=== PATIENT | female | born 1985 ===

== ENCOUNTER 2022-02-18 16:53 | Emergency (ER) | payer BC, OTHER ==
[2022-02-18] MEDS ORDERED: ONDANSETRON 4 MG/2 ML VIAL ONE (17:59)
[2022-02-18] MEDS ORDERED: BUPIVACAINE 0.5% PF 10 ML VIAL ONE (17:59)
[2022-02-18] MEDS ORDERED: MORPHINE 4 MG/ML SYR ONE (17:59)
[2022-02-18] MEDS ORDERED: LIDOCAINE 1% 20 ML MDV ONE (17:59)
[2022-02-18] MEDS ORDERED: HYDROMORPHONE HCL 0.5 MG/0.5 ML INJ ONE (18:58)
--- NOTE | 2022-02-18 19:13 | ER ---
Nurse's Notes [facility] Name: Dana Massey Age: 36 yrs Sex: Female : 1985 Arrival Date: 02/18/2022 Time: 17:01 Bed 12 Private MD: Diagnosis: Cutaneous abscess of the buttock;Cutaneous abscess of the lower abdomen Presentation: 02/18 17:33 Chief complaint: Patient states: abscess to buttock. Coronavirus screen: Client denies ss travel out of the [place] in the last 14 days. Ebola Screen: Patient denies exposure to infectious person. Patient denies travel to an Ebola-affected area in the 21 days before illness onset. Initial Sepsis Screen: Does the patient meet any 2 criteria? No. Patient's initial sepsis screen is negative. Does the patient have a suspected source of infection? No. Patient's initial sepsis screen is negative. Risk Assessment: Do you want to hurt yourself or someone else? Patient reports no desire to harm self or others. Onset of symptoms is unknown. 17:33 Method Of Arrival: Ambulatory ss 17:33 Acuity: MUSTAPHA 4 ss Historical: - Allergies: 17:34 No Known Allergies; ss - Immunization history:: Client reports receiving the 2nd dose of the Covid vaccine. - Social history:: Smoking status: Patient denies any tobacco usage or history of. Screenin:09 Abuse screen: Denies threats or abuse. Denies injuries from another. Nutritional ss screening: No deficits noted. Tuberculosis screening: Never had TB. Fall Risk None identified. Assessment: 17:30 General: Appears uncomfortable, Behavior is anxious, crying, Reports fever for. Pain: ss Complains of pain in buttocks Pain currently is 9 out of 10 on a pain scale. Quality of pain is described as tender, Is continuous. Neuro: Level of Consciousness is awake, alert, obeys commands. Respiratory: Airway is patent Respiratory effort is even, unlabored, Respiratory pattern is regular, symmetrical. Derm: Skin is pink, warm \T\ dry. Abscess located on buttocks is half dollar sized, is red, is raised. 18:55 Reassessment: Patient is alert, oriented x 3, equal unlabored respirations, skin aa5 warm/dry/pink. Vital Signs: 17:33 Pulse 86; Resp 16; Temp 99.1(TE); Pulse Ox 99% on R/A; Weight 68.49 kg; Height 5 ft. 5 ss in. (165.10 cm); Pain 9/10; 18:58 BP 127 / 77; Pulse 68; Resp 18 S; Pulse Ox 97% on R/A; aa5 17:33 Body Mass Index 25.13 (68.49 kg, 165.10 cm) ED Course: 17:01 Patient arrived in ED. ds1 17:03 [facility]iga [facility] 17:03 Jose Alejandro Jones MD is Attending Physician. [facility] 17:34 Triage completed. ss 17:37 Zahra Ruiz, RN is Primary Nurse. ss 17:37 Arm band placed on right wrist. ss 18:09 Patient has correct armband on for positive identification. Bed in low position. Call ss light in reach. 18:09 Inserted saline lock: 22 gauge in right antecubital area, using aseptic technique. ss Blood collected. 19:00 No provider procedures requiring assistance completed. IV discontinued, intact, ss bleeding controlled, No redness/swelling at site. Pressure dressing applied. 19:12 Theron Gonsales MD is Referral Physician. [facility] Administered Medications: 18:06 Drug: Zofran (Ondansetron) 4 mg Route: IVP; Site: right antecubital; 18:29 Follow up: Response: No adverse reaction 18:07 Drug: morphine 4 mg Route: IVP; Site: right antecubital; ss 18:29 Follow up: Response: No adverse reaction; Pain is unchanged, physician notified 18:14 Drug: Lidocaine (1 %) 20 ml {Note: administered by PA. Nba} Volume: 20 ml; Route: ss Infiltration; 18:14 Drug: Marcaine (bupivacaine) (0.5 %) 10 ml {Note: administered by PA. Nba} Volume: 10 ss ml; Route: Infiltration; 18:55 Drug: Dilaudid (HYDROmorphone) 0.5 mg Route: IVP; Site: right antecubital; aa5 19:40 Follow up: Response: No adverse reaction; Pain is decreased Outcome: 19:00 Discharged to home ambulatory. 19:00 Condition: good 19:00 Discharge instructions given to patient, Instructed on discharge instructions, follow up and referral plans. medication usage, Demonstrated understanding of instructions, follow-up care, medications, Prescriptions given X 2. 19:12 Discharge ordered by . evelin 19:40 Patient left the ED. ss Signatures: Nba Zuniga PA PA jmm Sanford, Demi ds1 Charley Franco, RN RN aa5 Zahra Ruiz RN RN ss
--- NOTE | 2022-02-18 19:13 | EDPHYS ---
Physician Documentation [facility] Name: Dana Massey Age: 36 yrs Sex: Female : 1985 Arrival Date: 02/18/2022 Time: 17:01 Bed 12 Private MD: ED Physician Jose Alejandro Jones HPI: 02/18 19:08 This 36 yrs old Unknown Female presents to ER via Ambulatory with complaints of Abscess.jmm 19:08 The patient presents with an abscess of the buttocks and abdomen. Onset: The jmm symptoms/episode began/occurred gradually. Possible cause(s): unknown. Associated signs and symptoms: Pertinent positives: fever. Modifying factors: the symptoms are alleviated by nothing, the symptoms are aggravated by nothing. The patient has not experienced similar symptoms in the past. Is a 36-year-old female with no Clarissa conditions presents emerge department with complaints of worsening abscess mainly to the right gluteal but also having some swelling to the abdomen. Patient was seen by general surgery yesterday and advised to place abby. Patient became concerned because she developed a low-grade fever.. Historical: - Allergies: 17:34 No Known Allergies; ss - Immunization history:: Client reports receiving the 2nd dose of the Covid vaccine. - Social history:: Smoking status: Patient denies any tobacco usage or history of. ROS: 19:08 Constitutional: Negative for fever, chills, and weight loss, Cardiovascular: Negative jmm for chest pain, palpitations, and edema, Respiratory: Negative for shortness of breath, cough, wheezing, and pleuritic chest pain. 19:08 Skin: Positive for erythema. 19:08 All other systems are negative. Exam: 19:08 Constitutional: This is a well developed, well nourished patient who is awake, alert, jmm and in no acute distress. Head/Face: atraumatic. Eyes: EOMI, no conjunctival erythema appreciated ENT: Moist Mucus Membranes Neck: Trachea midline, Supple Chest/axilla: Normal chest wall appearance and motion. Cardiovascular: Regular rate and rhythm. No edema appreciated Respiratory: Normal respirations, no respiratory distress appreciated Abdomen/GI: Non distended, soft Back: Normal ROM 19:08 Skin: Indurated abscess noted to the left gluteus, small abscess noted to the left lower quadrant of the abdomen. 19:08 Neuro: Orientation: is normal, Mentation: is normal, Memory: is normal. 19:08 Psych: Behavior/mood is pleasant, cooperative. Vital Signs: 17:33 Pulse 86; Resp 16; Temp 99.1(TE); Pulse Ox 99% on R/A; Weight 68.49 kg; Height 5 ft. 5 ss in. (165.10 cm); Pain 9/10; 18:58 BP 127 / 77; Pulse 68; Resp 18 S; Pulse Ox 97% on R/A; aa5 17:33 Body Mass Index 25.13 (68.49 kg, 165.10 cm) Procedures: 19:10 I \T\ D: Incision and drainage was performed for an abscess of the abdomen and buttocks jmm Prepped with Betadine, Anesthetized with 5 ml's 1% Lidocaine. Incised with #11 blade. Drained moderate amount purulent fluid. Packed with iodoform gauze, Dressing: sterile 4x4 gauze, the patient tolerated the procedure well. MDM: 17:21 Patient medically screened. [facility] 19:10 Data reviewed: vital signs, nurses notes. [facility] 19:11 Counseling: I had a detailed discussion with the patient and/or guardian regarding: the [facility] historical points, exam findings, and any diagnostic results supporting the discharge/admit diagnosis, the need for outpatient follow up, to return to the emergency department if symptoms worsen or persist or if there are any questions or concerns that arise at home. ED course: Patient is alert nontoxic in appearance in the ED. Abscesses drained in the ED. Advised follow general surgery for evaluation otherwise given strict return precautions. Patient understood agrees plan of care.. 12 17:34 Order name: Saline Lock; Complete Time: 18:07 [facility] Administered Medications: 18:06 Drug: Zofran (Ondansetron) 4 mg Route: IVP; Site: right antecubital; 18:29 Follow up: Response: No adverse reaction 18:07 Drug: morphine 4 mg Route: IVP; Site: right antecubital; ss 18:29 Follow up: Response: No adverse reaction; Pain is unchanged, physician notified 18:14 Drug: Lidocaine (1 %) 20 ml {Note: administered by PA. Nba} Volume: 20 ml; Route: ss Infiltration; 18:14 Drug: Marcaine (bupivacaine) (0.5 %) 10 ml {Note: administered by PA. Nba} Volume: 10 ss ml; Route: Infiltration; 18:55 Drug: Dilaudid (HYDROmorphone) 0.5 mg Route: IVP; Site: right antecubital; aa5 19:40 Follow up: Response: No adverse reaction; Pain is decreased ss Disposition Summary: 02/18/22 19:12 Discharge Ordered Location: Home [facility] Condition: Stable [facility] Diagnosis - Cutaneous abscess of the buttock jmm - Cutaneous abscess of the lower abdomen [facility] Followup: [facility] - With: Theron Gonsales MD - When: 2 - 3 days - Reason: Recheck today's complaints, Continuance of care, Re-evaluation by your physician Discharge Instructions: - Discharge Summary Sheet [facility] - Skin Abscess [facility] - Incision and Drainage, Care After jm Forms: - Medication Reconciliation Form [facility] - Thank You Letter [facility] - Antibiotic Education [facility] - Prescription Opioid Use [facility] Prescriptions: - Doxycycline Hyclate 100 mg Oral Tablet - take 1 tablet by ORAL route every 12 hours; 20 tablet; Refills: 0, Product [facility] Selection Permitted - Bactrim DS 800-160 mg Oral Tablet - take 1 tablet by ORAL route every 12 hours for 10 days; 20 tablet; Refills: 0, [facility] Product Selection Permitted Addendum: 02/20/2022 18:43 Co-signature as Attending Physician, Jose Alejandro Jones MD I agree with the assessment and c moser plan of care. Signatures: Dispatcher [employer] Jose Alejandro Saavedra MD MD cha Mickail, Joel, PA PA [facility] Charley Franco, RN RN aa5 Zahra Ruiz RN RN ss
[2022-02-19 01:59] VITALS: TEMP 99.1
[2022-02-19 02:00] VITALS: BP 127/77; O2SAT 97
== END 2022-02-18 19:40 | disposition home or self-care (01) ==
LOC: ER 16:53
PROC: 0H97XZZ Drainage of Abdomen Skin, External Approach (ICD-10-PCS; principal; 2022-02-18)
PROC: 0H98XZZ Drainage of Buttock Skin, External Approach (ICD-10-PCS; 2022-02-18)
DX: L02.31 Cutaneous abscess of buttock (principal); L02.211 Cutaneous abscess of abdominal wall
CPT/HCPCS: 96375; 96374; 99284; 10060; J1170; J2405